=== PATIENT | male | born 1995 | race Caucasian/White ===

== ENCOUNTER 2021-08-03 00:29 | Emergency (ER) | payer OTHER | END 2021-08-03 00:50 | LOC: ERS 00:29 | DX: S40.211A Abrasion of right shoulder, initial encounter (principal); S30.811A Abrasion of abdominal wall, initial encounter; F17.290 Nicotine dependence, other tobacco product, uncomplicated; Z23 Encounter for immunization; V49.9XXA Car occupant (driver) (passenger) injured in unspecified traffic accident, initial encounter | CPT/HCPCS: 99283 ==

== ENCOUNTER 2025-03-02 10:05 | Emergency (ER) | payer OTHER ==
[2025-03-02] MEDS ORDERED: HYDROcodone/Acetaminophen 5/325 mg Tablet ONE (11:01)
== END 2025-03-02 11:06 | disposition home or self-care (01) ==
LOC: ERS 10:05
DX: M25.571 Pain in right ankle and joints of right foot (principal); F17.210 Nicotine dependence, cigarettes, uncomplicated; F17.290 Nicotine dependence, other tobacco product, uncomplicated; Z79.82 Long term (current) use of aspirin; Y04.2XXA Assault by strike against or bumped into by another person, initial encounter
CPT/HCPCS: 29515